=== PATIENT | male | born 1950 | race Caucasian/White ===

== ENCOUNTER 2018-03-14 15:27 | Emergency (ER) | payer SELFPAY ==
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
[2018-03-14 16:30] LABS: BASO % 0.5 % (0-6); EOS % 0.7 % (0-6); GRAN % 68.3 % (47-80); HEMOGLOBIN 12.8 gm/dl (14.0-18.0); LYMPH % 22.6 % (16-45); MEAN CELL VOLUME 93.2 fl (81-97); MEAN CORPUSCULAR HGB CONC 31.2 g/dl (32-36); MEAN PLATELET VOLUME 10.8 fl (7.4-10.4); MONO % 7.9 % (0-9); PLATELET COUNT 214 K/uL (130-400); RED CELL DISTRIBUTION WIDTH 14.3 % (11.5-14.5); WHITE BLOOD COUNT W/O DIFF 8.6 K/uL (4.2-12.2)
[2018-03-14 16:38] LABS: BLOOD UREA NITROGEN 18 mg/dL (8-23); CREATININE 1.1 mg/dL (0.7-1.2); EST GLOMERULAR FILTRATION RATE > 60 mL/min
[2018-03-14 16:41] LABS: GLUCOSE,RANDOM 132 mg/dL (74-109)
[2018-03-14 16:42] LABS: INR 1.9; PARTIAL THROMBOPLASTIN TIME 31.7 SECONDS (24.5-39.1); PROTHROMBIN TIME (PATIENT) 20.8 SECONDS (9.5-12.1)
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
== END 2018-03-14 17:11 | disposition home or self-care (01) ==
LOC: ER 15:27
DX: S80.12XA Contusion of left lower leg, initial encounter (principal); M25.511 Pain in right shoulder; M25.531 Pain in right wrist; I10 Essential (primary) hypertension; Z79.01 Long term (current) use of anticoagulants; V43.52XA Car driver injured in collision with other type car in traffic accident, initial encounter
CPT/HCPCS: 71046; 80048; 85025; 85610; 85730; 99283; 99284